=== PATIENT | female | born 1980 | race Caucasian/White ===

== ENCOUNTER 2016-10-10 09:51 | Day surgery (SDC) | payer BC ==
--- NOTE | ~2016-10-10 | OP ---
Record Of Operation [facility] [address] [place]. [address] NAME: MOSES RODARTE : 80 STATUS : [facility] PAT#: [id number] AGE: 36 ADM/REG DATE : 10/10/16 MR#: [id number] REPORT SERV DATE: 10/10/16 DICTATED BY: LESTER ALMANZAR DATE: 10/10/16 REPORT STATUS : Draft TRANSCRIBED BY: MODL DATE: 10/10/16 DATE OF PROCEDURE: 10/10/2016 PREOPERATIVE DIAGNOSES: Stage 5 kidney disease. POSTOPERATIVE DIAGNOSIS: Stage 5 kidney disease. PROCEDURE: Left radiocephalic fistula. GANG VIBRATOR OPERATOR: Eliceo. ANESTHESIA: Regional with local and sedation. COMPLICATIONS: None. BLOOD LOSS: Minimal. HISTORY: The patient is a 36-year-old female in need of access for dialysis. It was felt she would benefit from a left arm fistula. This was discussed in detail with the patient and they expressed understanding and desired to proceed. DESCRIPTION OF PROCEDURE: The patient was taken to the operating room and placed in a supine position. She was given IV sedation without complication. The left arm was prepped and draped in a sterile fashion. Ultrasound showed an adequate cephalic vein in the forearm for fistula placement. Lidocaine 1% was infiltrated distally. A longitudinal incision created. Dissection performed to identify the cephalic vein which was isolated at the branch point. The vein measured 3 mm and the artery measured 2 mm. The patient was given 3000 units of heparin intravenously. Attention was turned medially and dissection performed to identify the radial artery which was freed circumferentially and isolated with a vessel loop. The artery was controlled proximally and distally with vascular clamps. An 11 blade was used to create an arteriotomy which was stented with Varghese scissors. The vein was controlled distally with clips, divided proximal to the clips and spatulated through the branch point to create a wide mouth for anastomosis. The vein was sewn end-to-side of the artery with running 6-0 Prolene suture. Upon completion, flow was restored. The vein dilated nicely and developed an excellent thrill. It was dissected proximally. Distal branch was controlled with clips and divided. Hemostasis assured. The subcutaneous tissue was closed with 3-0 Vicryl suture. Skin closed with 4-0 Monocryl suture. Dermabond dressing applied. The patient tolerated the procedure well and she will be taken to the recovery room and discharged home when stable. ANNY/TSAS Lester Almanzar M.D. Record Of Operation [address] [place]. [address] NAME: MOSES RODARTE : 80 STATUS : [facility] PAT#: [id number] AGE: 36 ADM/REG DATE : 10/10/16 MR#: [id number] REPORT SERV DATE: 10/10/16 DICTATED BY: LESTER ALMANZAR DATE: 10/10/16 REPORT STATUS : Draft TRANSCRIBED BY: STAS DATE: 10/10/16 / [id number] CC: José Manuel Barrera M.D.
[~2016-10-10 09:51] MED LIST: ACET500CAP PO; APIDRA; B COMPLETE PO; CAT1 PO; CEFT2 PO; COZ50 PO; D 5000 PO; DIOVAN320 MG PO; DSS PO; ENDOCET1 TA3 PO; EPO IJ; HUMAPUMP SC; KEPPRA500 PO; L20 PO; LYRICA150 MG PO; LYRICA50 PO; LYRICA75 PO; MIRALAXPKT PO; NORCO1 TAB PO; NORV25 PO; NOVLOGPUMP SC; PRILOSEC40 MG PO; PROAIR HFA INH; PROZAC PO; ZAROX2.5B PO
[2016-10-10 10:33] LABS: BASOPHILS 0.7 %; BASOPHILS ABSOLUTE 0.05 10/3/uL (0.0-0.16); EOSINOPHILS 2.2 %; EOSINOPHILS ABSOLUTE 0.15 10/3/uL (0.0-0.53); HEMOGLOBIN 9.7 g/dL (12.0-16.0); IMMATURE GRANULOCYTES 0.1 %; IMMATURE GRANULOCYTES ABSOLUTE 0.01 10/3/uL (0.0-0.11); LYMPHOCYTES 24.7 %; LYMPHOCYTES ABSOLUTE 1.66 10/3/uL (0.67-4.30); MANUAL DIFF NO %; MEAN CORPUS HGB CONC 32.3 g/dL (32.0-36.0); MEAN CORPUSCULAR HEMOGLOB 29.5 pg (26.0-34.0); MEAN CORPUSCULAR VOLUME 91.2 fL (80-100); MEAN PLATELET VOLUME 10.8 fL (9.2-13.0); MONOCYTES ABSOLUTE 0.67 10/3/uL (0.21-1.20); NEUTROPHILS 62.3 %; NEUTROPHILS ABSOLUTE 4.17 10/3/uL (2.02-8.40); PLATELET COUNT 241 10/3/uL (150-400); RBC DISTRIBUTION WIDTH 14.5 % (12.0-16.0); RED CELL COUNT 3.29 10/6/uL (4.0-5.6); WHITE BLOOD CELLS 6.7 10/3/uL (4.5-10.5)
[2016-10-10 10:41] LABS: CALCIUM, SERUM 8.1 MG/DL (8.5-10.4); CHLORIDE, SERUM 106 MMOL/L (96-112); CO2 (CARBON DIOXIDE) 24 MMOL/L (24-34); POTASSIUM, SERUM 4.8 MMOL/L (3.5-5.3); SODIUM, SERUM 141 MMOL/L (135-148)
[2016-10-10 10:42] LABS: BUN (BLOOD UREA NITROGEN) 69 MG/DL (6-23); CREATININE 4.01 MG/DL (0.55-1.02); GFR AFRICAN AMERICAN 16 ML/MIN (>=60); GFR NON AFRICAN AMERICAN 14 ML/MIN (>=60); GLUCOSE, SERUM 155 MG/DL (60-99)
[2016-10-10] MEDS ORDERED: PRILOSEC40 MG PO (22:11)
[2016-10-10] MEDS ORDERED: PROZAC PO (22:11)
[2016-10-10] MEDS ORDERED: KEPPRA500 PO (22:12)
[2016-10-10] MEDS ORDERED: L20 PO (22:12)
[2016-10-10] MEDS ORDERED: NORCO1 TAB PO (22:13)
[2016-10-10] MEDS ORDERED: ZAROX2.5B PO (22:13)
[2016-10-10] MEDS ORDERED: NORV25 PO (22:13)
[2016-10-10] MEDS ORDERED: VITAMIN D31000 UNIT PO (22:14)
[2016-10-10] MEDS ORDERED: MIRALAX POWDER1 PKT PO (22:14)
[2016-10-10] MEDS ORDERED: LYRICA75 PO (22:14)
[2016-10-10] MEDS ORDERED: DSS PO (22:14)
[2016-10-10] MEDS ORDERED: CARDCD120 PO (22:15)
[2016-10-10] MEDS ORDERED: NOVOLOG SC (22:19)
[2016-10-10] MEDS ORDERED: ARANESP25 IV (22:19)
[2017-01-21] MEDS ORDERED: LYRICA75 PO (19:56)
[2017-01-21] MEDS ORDERED: PRILOSEC40 MG PO (19:56)
[2017-01-21] MEDS ORDERED: KEPPRA500 PO (19:57)
[2017-01-21] MEDS ORDERED: PERCOCET 7.5/321 TAB PO (19:58)
[2017-01-21] MEDS ORDERED: NORV5 PO (19:59)
[2017-01-21] MEDS ORDERED: CARTIA XT120 MG/24 PO (19:59)
[2017-01-21] MEDS ORDERED: PHOSLO PO (20:01)
[2017-01-21] MEDS ORDERED: BICITRA PO (20:01)
[2017-01-21] MEDS ORDERED: PROZAC PO (20:02)
[2017-01-21] MEDS ORDERED: NOVLOGPUMP SC (20:02)
[2017-01-21] MEDS ORDERED: ZAROX2.5B PO (20:02)
[2017-01-21] MEDS ORDERED: L20 PO (20:03)
[2017-01-21] MEDS ORDERED: MIRALAX POWDER1 PKT PO (20:03)
[2017-01-21] MEDS ORDERED: DSS PO (20:04)
[2017-01-21] MEDS ORDERED: D 5000 PO (20:04)
[2017-01-21] MEDS ORDERED: ARANESP IV (20:05)
== END 2016-10-10 20:37 | disposition home or self-care (01) ==
LOC: SDC 09:51
PROVIDERS: Surgery
PROC: 031C0ZF Bypass Left Radial Artery to Lower Arm Vein, Open Approach (ICD-10-PCS; 2016-10-10)
PROC: 5A1D00Z (ICD-10-PCS; 2016-10-10)
PROC: B50WYZZ Plain Radiography of Dialysis Shunt/Fistula using Other Contrast (ICD-10-PCS; principal; 2016-10-10 11:45)
DX: N18.5 Chronic kidney disease, stage 5 (principal); E11.22 Type 2 diabetes mellitus with diabetic chronic kidney disease; I12.9 Hypertensive chronic kidney disease with stage 1 through stage 4 chronic kidney disease, or unspecified chronic kidney disease; E11.42 Type 2 diabetes mellitus with diabetic polyneuropathy; G40.909 Epilepsy, unspecified, not intractable, without status epilepticus; E11.319 Type 2 diabetes mellitus with unspecified diabetic retinopathy without macular edema; G43.909 Migraine, unspecified, not intractable, without status migrainosus; Z98.890 Other specified postprocedural states; Z99.2 Dependence on renal dialysis; Z88.8 Allergy status to other drugs, medicaments and biological substances; Z79.899 Other long term (current) drug therapy
CPT/HCPCS: 36821; 80048; 82962; 85025; 93005; J0690; J2250; J2405; J2795; J3010

== ENCOUNTER 2016-10-10 20:04 | Inpatient (IN) | payer BC ==
--- NOTE | ~2016-10-10 | CN ---
Consultation Report [facility] [address] [place]. [address] NAME: MOSES RODARTE : 80 STATUS : ADM IN PAT#: [id number] AGE: 36 ADM/REG DATE : 10/10/16 MR#: [id number] REPORT SERV DATE: 10/11/16 DICTATED BY: STUART MURPHY DATE: 10/11/16 REPORT STATUS : Draft TRANSCRIBED BY: MODL DATE: 10/11/16 CONSULTATION DATE OF CONSULTATION: REASON FOR CONSULTATION: CKD stage 5. HISTORY OF PRESENT ILLNESS: This is a very pleasant medically unfortunate 36-year-old female patient, who is admitted to Dr. Skelton service, recently had a left upper extremity access created in preparation for end-stage renal disease, and began to experience steal syndrome of her left hand prompting further surgical intervention today. She did undergo ligation of her left upper extremity fistula this morning and is resting in bed this afternoon during evaluation. Contact was made overnight by nursing service, who is providing care for the patient reporting some level of emesis and difficulty with an increasing blood glucose as the patient was removed from her insulin pump on entry in preparation for surgical intervention. Consequently, her blood glucose had risen to greater than 500 and she was placed overnight by our call service on an insulin drip. Her blood glucoses have began to trend down nicely. Further contact was made this morning regarding acidosis noted on her morning laboratory results and treated with IV bicarb. She is POD 0 from early a.m. ligation of her left upper extremity fistula, which is experiencing steal as above. She is lying in bed, in no acute distress, and is somewhat somnolent, but in no acute distress. PAST MEDICAL HISTORY: Positive for type 1 diabetes mellitus diagnosed at age 2 by report of her father, hypertension, severe peripheral neuropathy, she is confined to a wheelchair, but has no wounds on her body according to her father. Father denies retinopathy; however, does state that she is also positive for cataracts. Previous seizure last known to be in 08/2015 by report. REVIEW OF SYSTEMS: Completed with the assistance of the patient's father and she is somewhat somnolent, but arousable postoperatively as above. FAMILY HISTORY: Noncontributory and not reviewed during this consultation and dictation process. SOCIAL HISTORY: No EtOH. No illicit drugs. No tobacco. She lives here locally nearby her family, who provide some level of medical assistance for the patient. MEDICATIONS AND ALLERGIES: Active medications and allergies as follows on entry shows allergies to pneumococcal vaccine and adhesive tape. Active medications include amlodipine 2.5 mg p.o. daily; vitamin D3 of 5000 units daily; Cardizem 120 mg p.o. at bedtime; Colace 1000 mg p.o. t.i.d.; Prozac 20 mg p.o. daily; Lasix Consultation Report [address] [place]. [address] NAME: MOSES RODARTE : 80 STATUS : ADM IN PAT#: [id number] AGE: 36 ADM/REG DATE : 10/10/16 MR#: [id number] REPORT SERV DATE: 10/11/16 DICTATED BY: STUART MURPHY DATE: 10/11/16 REPORT STATUS : Draft TRANSCRIBED BY: MODGrady DATE: 10/11/16 60 mg daily; Lisle 10 mg p.o. daily p.r.n.; insulin NovoLog sliding scale, insulin through her insulin pump; Keppra 500 mg p.o. b.i.d.; Zaroxolyn 2.5 on Thursday, Thursday, Thursday; Prilosec 40 mg p.o. daily; MiraLAX 17 g p.o. at bedtime; Lyrica 75 mg p.o. t.i.d.; Aranesp injections received weekly through Dr. Horvath's office. PHYSICAL EXAMINATION: VITAL SIGNS: Blood pressure at 146/70, temperature 98.0, pulse at 84 and regular, respirations at 19%, she is 96% on room air. GENERAL: She is a chronically ill-appearing female patient, lying in bed during evaluation. HEENT: Normocephalic, atraumatic. Normal ocular movements. No scleral icterus or conjunctival pallor is appreciated. NECK: Supple without thyromegaly. No JVD. No mass. CHEST: Shows positive S1 and S2. No rubs or gallops. LUNGS: Clear to auscultation throughout with normal expansion and effort bilaterally. GI: Shows positive bowel sounds in all four quadrants. No appreciable mass or tenderness. : Deferred. EXTREMITIES: Show positive pulses to both lower extremities and right upper extremity. Left upper extremity has good capillary refill. Pulses are not assessed as there is a heavy wrap around her left upper extremity, status post ligation of her fistula. SKIN: Warm, dry, and intact to visualized surfaces. No rash, lesions, or ecchymosis. There is some bruising noted on her lower extremities. NEUROLOGIC: She appears to be grossly intact, nonfocal, and she is of appropriate mood and affect. LABORATORY DATA: Pertinent laboratories and imaging are as follows: Renal function panel; sodium 146, potassium 4.3, chloride 112, CO2 of 22, BUN 76, creatinine 4.67, reflected GFR at 11 mL/minute, glucose of 287. Calcium 8.0, phosphorus 5.6, albumin 2.1. Most recent CBC white blood cell count 8.5, RBC 3.39, hemoglobin 10.3, hematocrit 31.0. IMPRESSION AND PLAN: This is a chronic kidney disease stage 5 patient with current questioning does not appear to be uremic at this time. She does have a left upper extremity fistula that was recently created by Dr. Brodie Almanzar, and has required ligation secondary to steal syndrome of her left upper extremity. She is POD #0 and unfortunately developed worsening glucose control, hyperkalemia, and some nausea and vomiting overnight. Fortunately, she has been successfully control with an insulin drip and her hyperkalemia has resolved with administration of 3 amps of bicarb this morning plus the 30 g of Kayexalate that she was provided overnight by the on-call physician Dr. Solomon. Going forward, the patient is advised of uremic symptomatology and clinical reasoning that would initiate hemodialysis. Currently, she does not exhibit those symptoms, would not need to initiate hemodialysis at this time, but would need to be watch very closely. We will follow along with you through serial laboratories, strict I's and O's, daily weights, protect her left upper extremity fistula, place her on renal ADA diet, continue her insulin drip through this evening, and initiate her insulin pump tomorrow if she is more lucid and awake and her father is able to retrieve it from home. Await further surgical planning through Dr. Skelton Consultation Report [address] [place]. [address] NAME: MOSES RODARTE : 80 STATUS : ADM [facility]#: [id number] AGE: 36 ADM/REG DATE : 10/10/16 MR#: [id number] REPORT SERV DATE: 10/11/16 DICTATED BY: STUART MURPHY DATE: 10/11/16 REPORT STATUS : Draft TRANSCRIBED BY: STAS DATE: 10/11/16 service. She will certainly require close followup in our office for continuing monitoring for uremic symptomatology and ongoing education in preparation for end-stage renal disease. We appreciate consultation on this patient. We are glad to follow her with you. DICTATED BY: Shashi Linares NP JR/STAS Stuart Murpyh M.D. / [id number] CC: José Manuel Goss Jr., M.D.
--- NOTE | ~2016-10-10 | DS ---
Discharge Summary [facility] [address] [facility] [place] [place]. [address] NAME: MOSES RODARTE : 80 STATUS : DIS IN PAT#: [id number] AGE: 36 ADM/REG DATE : 10/10/16 MR#: [id number] REPORT SERV DATE: 10/22/16 DICTATED BY: ALEXANDRU SKELTON JR. DATE: 10/21/16 REPORT STATUS : Draft TRANSCRIBED BY: STAS DATE: 10/21/16 Data Collection from hospitalization DISCHARGE DIAGNOSES: 1. Renal insufficiency. 2. Hyperkalemia. 3. Diabetes [id number] 1. 4. Hand steal syndrome. 5. Hypertension. CONSULTATIONS: Dr. Parrish Soria. PROCEDURES PERFORMED: Ligation of left hand steal syndrome, status post creation of left Mayank fistula, 10/11/2016. MEDICATIONS: Norvasc 2.5 mg every morning; vitamin D3 5000 units every morning; Aranesp 75 mcg IV every 28 days; Cardizem CD 120 mg at bedtime; Colace 100 mg three times a day; Prozac 20 mg every morning; Lasix 60 mg every morning; Lincoln 10/325 10 mg twice a day as needed; NovoLog injection insulin as instructed; Keppra 500 mg twice a day; Zaroxolyn 2.5 mg on Mondays, Wednesdays, and Fridays; Prilosec 40 mg every morning; Percocet 5/325 one tablet every three hours as needed; MiraLAX powder 17 g at bedtime; Lyrica 75 mg three times a day. CONDITION AT DISCHARGE: Stable. DISPOSITION: The patient was discharged home, to be followed by Home Health Care, on a low- cholesterol, 1800-calorie diabetic diet, with no concentrated carbohydrates and activities as instructed. She would follow up with Dr. Brodie Almanzar, 10/29/2016. She would follow up with [facility] one to two weeks following discharge. HOSPITAL COURSE: This is a 36-year-old woman who has severe brittle diabetes, who has had diabetes for 34 years. She had her standard Mayank fistula created on the day of this admission by Dr. Brodie Almanzar. She had been discharged home. After arriving home, she developed excruciating pain involving the left hand. She came to the emergency room and was found to have blistering involving the left thumb and trigger finger. She was admitted to the hospital at this time for further evaluation and treatment. Upon admission, during the night, the blistering became worse. It was my opinion that she had developed severe steal syndrome and would need the fistula ligated. She was taken to the operating room, where she underwent the above-mentioned procedure. She tolerated this well. There were no complications. Postoperatively, she was seen by Dr. Parrish Soria. The patient has stage 5 chronic kidney disease. The patient had developed worsening glucose control as well as hyperkalemia and some nausea and vomiting. Fortunately, she had been successfully controlled with an insulin drip and her hyperkalemia had resolved with administration of 3 amps of bicarb plus Kayexalate. The patient was advised of uremic symptomatology and clinical reasoning that would initiate hemodialysis. She currently did not exhibit those symptoms and we would not need to initiate hemodialysis at this time, but we would need to watch this very closely. We would protect the left upper extremity fistula. She would be placed on a renal/diabetic diet. We would continue her insulin drip Discharge Summary [address] [address] NAME: MOSES RODARTE : 80 STATUS : DIS IN PAT#: [id number] AGE: 36 ADM/REG DATE : 10/10/16 MR#: [id number] REPORT SERV DATE: 10/22/16 DICTATED BY: ALEXANDRU SKELTON JR. DATE: 10/21/16 REPORT STATUS : Draft TRANSCRIBED BY: STAS DATE: 10/21/16 through the evening and then initiate her insulin pump the following day if she was more lucid and awake and if her father was able to retrieve it from home. She would require close followup in his office for continued monitoring for uremic symptomatology and ongoing education and preparation for end-stage renal disease. On 10/12/2016, her fingers were warm. The hand appeared stable. She had no new complaints. Creatinine level was 4.39. On 10/13/2016, she underwent diabetes education. She had no nausea or vomiting. She had no increase in edema and no shortness of breath. Discharge instructions were given. Due to her improved and stable condition, she was discharged home, to be followed by Home Health [facility] with the above-stated instructions. Information collected by: Brie Collins I submit the above information as my discharge summary. TG/MODL Alexandru Skelton Jr., M.D. / [id number] CC: José Manuel Goss Jr., M.D. Claude Galphin, M.D.
--- NOTE | ~2016-10-10 | OP ---
Record Of Operation [facility] [address] [place]. [address] NAME: MOSES RODARTE : 80 STATUS : ADM IN [facility]#: [id number] AGE: 36 ADM/REG DATE : 10/10/16 MR#: [id number] REPORT SERV DATE: 10/11/16 DICTATED BY: ALEXANDRU SKELTON JR. DATE: 10/11/16 REPORT STATUS : Draft TRANSCRIBED BY: STAS DATE: 10/11/16 DATE OF PROCEDURE: 10/11/2016 PREOPERATIVE DIAGNOSIS: Left hand steal syndrome, status post creation of left Mayank fistula yesterday. POSTOPERATIVE DIAGNOSIS: Left hand steal syndrome, status post creation of left Mayank fistula yesterday. OPERATIONS: Ligation of same. SURGEON: Alexandru Skelton M.D. HISTORY: This is a 36-year-old white female with severe brittle diabetes who has had diabetes for 34 years. She had her standard Mayank fissure created yesterday by Dr. Almanzar. She was discharged home. After arriving home, she then developed excruciating pain involving the left hand. She came to the emergency room and was noted to have blistering involving the left thumb and trigger finger. She was admitted to the hospital. Overnight, the blistering became worse. It was my opinion that she had a severe steal syndrome and needed the fistula ligated. DESCRIPTION OF PROCEDURE: The patient was placed on the operating room table. The left arm was prepped and draped in the usual sterile manner. The former incision made yesterday was opened carefully. The fistula was easily identified. It was encircled with a Vicryl tie. A Doppler was then used to confirm flow in the radial and ulnar arteries of the left hand. I then ligated the fistula with the Vicryl. The low-resistance sound of the fistula went away. The signal in the left radial pulse was stronger. She continued to have a good Doppler radial and ulnar pulse. The wound was then closed with 3-0 Vicryl. The patient tolerated the procedure well, taken back to recovery room in serious condition. There were no intraoperative complications. ESTIMATED BLOOD LOSS: Negligible. DF/VENKATAL Alexandru Skelton Jr., M.D. / [id number] CC: José Manuel Goss Jr., M.D.
[2016-10-10 20:49] LABS: BASOPHILS 0.6 %; BASOPHILS ABSOLUTE 0.05 10/3/uL (0.0-0.16); EOSINOPHILS 0.1 %; EOSINOPHILS ABSOLUTE 0.01 10/3/uL (0.0-0.53); ER CBC TAT 0 Hrs 15 Mins; HEMOGLOBIN 10.3 g/dL (12.0-16.0); IMMATURE GRANULOCYTES 0.2 %; IMMATURE GRANULOCYTES ABSOLUTE 0.02 10/3/uL (0.0-0.11); LYMPHOCYTES 9.6 %; LYMPHOCYTES ABSOLUTE 0.81 10/3/uL (0.67-4.30); MEAN CORPUS HGB CONC 33.2 g/dL (32.0-36.0); MEAN CORPUSCULAR HEMOGLOB 30.4 pg (26.0-34.0); MEAN CORPUSCULAR VOLUME 91.4 fL (80-100); MEAN PLATELET VOLUME 11.1 fL (9.2-13.0); MONOCYTES ABSOLUTE 0.42 10/3/uL (0.21-1.20); NEUTROPHILS 84.5 %; NEUTROPHILS ABSOLUTE 7.15 10/3/uL (2.02-8.40); PLATELET COUNT 248 10/3/uL (150-400); RBC DISTRIBUTION WIDTH 14.3 % (12.0-16.0); RED CELL COUNT 3.39 10/6/uL (4.0-5.6); WHITE BLOOD CELLS 8.5 10/3/uL (4.5-10.5)
[2016-10-10 20:53] LABS: MANUAL DIFF NO %
[2016-10-10 20:59] LABS: A/G RATIO 0.8 (0.7-1.9); ALBUMIN 2.7 G/DL (3.5-5.0); ALKALINE PHOSPHATASE 129 U/L (45-117); BUN (BLOOD UREA NITROGEN) 73 MG/DL (6-23); CALCIUM, SERUM 8.1 MG/DL (8.5-10.4); CHLORIDE, SERUM 105 MMOL/L (96-112); CO2 (CARBON DIOXIDE) 21 MMOL/L (24-34); GFR AFRICAN AMERICAN 14 ML/MIN (>=60); GFR NON AFRICAN AMERICAN 12 ML/MIN (>=60); GLOBULIN 3.6 G/DL (2.5-4.1); GLUCOSE, SERUM 384 MG/DL (60-99); POTASSIUM, SERUM 6.5 MMOL/L (3.5-5.3); SGOT(AST) 17 U/L (5-40); SGPT(ALT) 18 U/L (5-65); SODIUM, SERUM 139 MMOL/L (135-148); TOTAL BILIRUBIN 0.2 MG/DL (0-1.2); TOTAL PROTEIN 6.3 G/DL (6.0-8.5)
[2016-10-10 22:08] LABS: BUN (BLOOD UREA NITROGEN) 72 MG/DL (6-23); CALCIUM, SERUM 8.1 MG/DL (8.5-10.4); CHLORIDE, SERUM 106 MMOL/L (96-112); CO2 (CARBON DIOXIDE) 20 MMOL/L (24-34); CREATININE 4.32 MG/DL (0.55-1.02); GFR AFRICAN AMERICAN 14 ML/MIN (>=60); GFR NON AFRICAN AMERICAN 12 ML/MIN (>=60); SODIUM, SERUM 138 MMOL/L (135-148)
[2016-10-10 22:09] LABS: GLUCOSE, SERUM 402 MG/DL (60-99); POTASSIUM, SERUM 6.4 MMOL/L (3.5-5.3)
[2016-10-10] MEDS ORDERED: PRILOSEC40 MG PO (22:11)
[2016-10-10] MEDS ORDERED: PROZAC PO (22:11)
[2016-10-10] MEDS ORDERED: KEPPRA500 PO (22:12)
[2016-10-10] MEDS ORDERED: L20 PO (22:12)
[2016-10-10] MEDS ORDERED: NORV25 PO (22:13)
[2016-10-10] MEDS ORDERED: ZAROX2.5B PO (22:13)
[2016-10-10] MEDS ORDERED: NORCO1 TAB PO (22:13)
[2016-10-10] MEDS ORDERED: DSS PO (22:14)
[2016-10-10] MEDS ORDERED: VITAMIN D31000 UNIT PO (22:14)
[2016-10-10] MEDS ORDERED: LYRICA75 PO (22:14)
[2016-10-10] MEDS ORDERED: MIRALAX POWDER1 PKT PO (22:14)
[2016-10-10] MEDS ORDERED: CARDCD120 PO (22:15)
[2016-10-10] MEDS ORDERED: NOVOLOG SC (22:19)
[2016-10-10] MEDS ORDERED: ARANESP25 IV (22:19)
[2016-10-11 05:14] LABS: BUN (BLOOD UREA NITROGEN) 75 MG/DL (6-23); CHLORIDE, SERUM 108 MMOL/L (96-112); CREATININE 4.54 MG/DL (0.55-1.02); GFR AFRICAN AMERICAN 13 ML/MIN (>=60); GFR NON AFRICAN AMERICAN 12 ML/MIN (>=60); POTASSIUM, SERUM 5.9 MMOL/L (3.5-5.3); SODIUM, SERUM 140 MMOL/L (135-148)
[2016-10-11 05:27] LABS: CO2 (CARBON DIOXIDE) 14 MMOL/L (24-34)
[2016-10-11 05:28] LABS: GLUCOSE, SERUM 541 MG/DL (60-99)
[2016-10-11 10:13] LABS: ALBUMIN 2.1 G/DL (3.5-5.0); BUN (BLOOD UREA NITROGEN) 76 MG/DL (6-23); CHLORIDE, SERUM 112 MMOL/L (96-112); CO2 (CARBON DIOXIDE) 22 MMOL/L (24-34); CREATININE 4.67 MG/DL (0.55-1.02); GFR AFRICAN AMERICAN 13 ML/MIN (>=60); GFR NON AFRICAN AMERICAN 11 ML/MIN (>=60); GLUCOSE, SERUM 287 MG/DL (60-99); PHOSPHORUS, SERUM 5.6 MG/DL (2.5-4.5); POTASSIUM, SERUM 4.3 MMOL/L (3.5-5.3); SODIUM, SERUM 146 MMOL/L (135-148)
[2016-10-12 05:57] LABS: BASOPHILS 0.5 %; BASOPHILS ABSOLUTE 0.04 10/3/uL (0.0-0.16); EOSINOPHILS 1.7 %; EOSINOPHILS ABSOLUTE 0.14 10/3/uL (0.0-0.53); IMMATURE GRANULOCYTES 0.1 %; IMMATURE GRANULOCYTES ABSOLUTE 0.01 10/3/uL (0.0-0.11); LYMPHOCYTES 30.8 %; LYMPHOCYTES ABSOLUTE 2.52 10/3/uL (0.67-4.30); MEAN CORPUSCULAR HEMOGLOB 30.7 pg (26.0-34.0); MEAN CORPUSCULAR VOLUME 90.2 fL (80-100); MEAN PLATELET VOLUME 10.7 fL (9.2-13.0); MONOCYTES 10.3 %; MONOCYTES ABSOLUTE 0.84 10/3/uL (0.21-1.20); NEUTROPHILS 56.6 %; NEUTROPHILS ABSOLUTE 4.62 10/3/uL (2.02-8.40); PLATELET COUNT 202 10/3/uL (150-400); RBC DISTRIBUTION WIDTH 14.4 % (12.0-16.0); WHITE BLOOD CELLS 8.2 10/3/uL (4.5-10.5)
[2016-10-12 05:58] LABS: HEMATOCRIT 23.8 % (36.0-48.0); HEMOGLOBIN 8.1 g/dL (12.0-16.0); MANUAL DIFF NO %; RED CELL COUNT 2.64 10/6/uL (4.0-5.6)
[2016-10-12 06:20] LABS: ALBUMIN 1.9 G/DL (3.5-5.0); BUN (BLOOD UREA NITROGEN) 72 MG/DL (6-23); CALCIUM, SERUM 7.1 MG/DL (8.5-10.4); CHLORIDE, SERUM 102 MMOL/L (96-112); CO2 (CARBON DIOXIDE) 26 MMOL/L (24-34); CREATININE 4.39 MG/DL (0.55-1.02); GFR AFRICAN AMERICAN 14 ML/MIN (>=60); GFR NON AFRICAN AMERICAN 12 ML/MIN (>=60); GLUCOSE, SERUM 99 MG/DL (60-99); PHOSPHORUS, SERUM 6.8 MG/DL (2.5-4.5); POTASSIUM, SERUM 4.5 MMOL/L (3.5-5.3); SODIUM, SERUM 142 MMOL/L (135-148)
[2016-10-13 05:19] LABS: BASOPHILS 0.6 %; BASOPHILS ABSOLUTE 0.04 10/3/uL (0.0-0.16); EOSINOPHILS 3.4 %; EOSINOPHILS ABSOLUTE 0.24 10/3/uL (0.0-0.53); HEMOGLOBIN 8.7 g/dL (12.0-16.0); IMMATURE GRANULOCYTES 0.3 %; IMMATURE GRANULOCYTES ABSOLUTE 0.02 10/3/uL (0.0-0.11); LYMPHOCYTES 28.2 %; LYMPHOCYTES ABSOLUTE 2.01 10/3/uL (0.67-4.30); MANUAL DIFF NO %; MEAN CORPUS HGB CONC 33.5 g/dL (32.0-36.0); MEAN CORPUSCULAR HEMOGLOB 30.1 pg (26.0-34.0); MEAN PLATELET VOLUME 10.4 fL (9.2-13.0); MONOCYTES 11.9 %; MONOCYTES ABSOLUTE 0.85 10/3/uL (0.21-1.20); NEUTROPHILS 55.6 %; NEUTROPHILS ABSOLUTE 3.96 10/3/uL (2.02-8.40); PLATELET COUNT 200 10/3/uL (150-400); RED CELL COUNT 2.89 10/6/uL (4.0-5.6); WHITE BLOOD CELLS 7.1 10/3/uL (4.5-10.5)
[2016-10-13 05:30] LABS: CALCIUM, SERUM 7.6 MG/DL (8.5-10.4); CHLORIDE, SERUM 103 MMOL/L (96-112); CO2 (CARBON DIOXIDE) 25 MMOL/L (24-34); GFR AFRICAN AMERICAN 12 ML/MIN (>=60); GFR NON AFRICAN AMERICAN 10 ML/MIN (>=60); GLUCOSE, SERUM 98 MG/DL (60-99); PHOSPHORUS, SERUM 7.7 MG/DL (2.5-4.5); POTASSIUM, SERUM 4.8 MMOL/L (3.5-5.3); SODIUM, SERUM 140 MMOL/L (135-148)
[2016-10-13 05:33] LABS: BUN (BLOOD UREA NITROGEN) 76 MG/DL (6-23); CREATININE 4.98 MG/DL (0.55-1.02)
[2016-10-13] MEDS ORDERED: PCET PO (08:38)
[2017-01-21] MEDS ORDERED: PRILOSEC40 MG PO (19:56)
[2017-01-21] MEDS ORDERED: LYRICA75 PO (19:56)
[2017-01-21] MEDS ORDERED: KEPPRA500 PO (19:57)
[2017-01-21] MEDS ORDERED: PERCOCET 7.5/321 TAB PO (19:58)
[2017-01-21] MEDS ORDERED: CARTIA XT120 MG/24 PO (19:59)
[2017-01-21] MEDS ORDERED: NORV5 PO (19:59)
[2017-01-21] MEDS ORDERED: BICITRA PO (20:01)
[2017-01-21] MEDS ORDERED: PHOSLO PO (20:01)
[2017-01-21] MEDS ORDERED: ZAROX2.5B PO (20:02)
[2017-01-21] MEDS ORDERED: NOVLOGPUMP SC (20:02)
[2017-01-21] MEDS ORDERED: PROZAC PO (20:02)
[2017-01-21] MEDS ORDERED: MIRALAX POWDER1 PKT PO (20:03)
[2017-01-21] MEDS ORDERED: L20 PO (20:03)
[2017-01-21] MEDS ORDERED: DSS PO (20:04)
[2017-01-21] MEDS ORDERED: D 5000 PO (20:04)
[2017-01-21] MEDS ORDERED: ARANESP IV (20:05)
== END 2016-10-13 14:06 | disposition home or self-care (01) | DRG 674 ==
LOC: ER 20:04 → 2SO 22:05
PROVIDERS: Emergency Medicine; Registered Nurse; Surgery
PROC: 5A1D60Z (ICD-10-PCS; 2016-10-10)
PROC: 03L Upper Arteries, Occlusion (ICD-10-PCS; principal; 2016-10-11 06:45)
PROC: 031C0ZF Bypass Left Radial Artery to Lower Arm Vein, Open Approach (ICD-10-PCS; principal; 2016-10-11 06:45)
DX: I12.9 Hypertensive chronic kidney disease with stage 1 through stage 4 chronic kidney disease, or unspecified chronic kidney disease (principal); G45.8 Other transient cerebral ischemic attacks and related syndromes; N17.9 Acute kidney failure, unspecified; E10.42 Type 1 diabetes mellitus with diabetic polyneuropathy; E11.22 Type 2 diabetes mellitus with diabetic chronic kidney disease; N18.5 Chronic kidney disease, stage 5; G40.909 Epilepsy, unspecified, not intractable, without status epilepticus; E87.5 Hyperkalemia; Z96.41 Presence of insulin pump (external) (internal); H26.9 Unspecified cataract; S60.322A Blister (nonthermal) of left thumb, initial encounter; S60.421A Blister (nonthermal) of left index finger, initial encounter; E10.319 Type 1 diabetes mellitus with unspecified diabetic retinopathy without macular edema; Z79.4 Long term (current) use of insulin; Z98.890 Other specified postprocedural states; Z99.2 Dependence on renal dialysis; Z88.8 Allergy status to other drugs, medicaments and biological substances; Z79.899 Other long term (current) drug therapy
CPT/HCPCS: 36821; 37607; 80048; 80053; 80069; 81003; 82009; 82962; 83735; 85025; 93005; 96374; 99285; A9270-GY; J0690; J2250; J2405; J2795; J3010